=== PATIENT | male | born 1950 | race Caucasian/White ===

== ENCOUNTER 2018-02-27 11:23 | Emergency (ER) | payer MEDICARE, OTHER ==
[~2018-02-27] VITALS: Ht 170.2 cm; Wt 81.8 kg
[2018-02-27] MEDS ORDERED: LISI1TAB9 PO (11:33)
[2018-02-27 11:43] LABS: GLUCOSE,POINT OF CARE 130 MG/DL (70-110)
[2018-02-27] MEDS ORDERED: DIAZEPAM 5 MG/ML 2 ML SYRINGE IVP ONE (12:00)
[2018-02-27] MEDS ORDERED: SODIUM CHLORIDE 0.9% 1,000 ML IV ONE (12:00)
[2018-02-27 12:30] LABS: BASOPHILS % (AUTO) 0.7 % (0.0-2.0); EOSINOPHILS % (AUTO) 0.7 % (1.0-6.0); HEMATOCRIT 47.6 % (41-53); HEMOGLOBIN 16.4 g/dL (13.5-17.5); LYMPHOCYTES # (AUTO) 1.4 K/uL (1.0-4.8); LYMPHOCYTES % (AUTO) 14.8 % (22.0-44.0); MEAN CORPUSCULAR HEMOGLOBIN 31.7 pg (26.0-34.0); MEAN CORPUSCULAR HGB CONC 34.3 G/dL (31.0-37.0); MEAN CORPUSCULAR VOLUME 92 fL (80-100); MONOCYTES # (AUTO) 0.9 K/uL (0.1-1.0); MONOCYTES % (AUTO) 9.2 % (2.0-9.0); NEUTROPHILS # (AUTO) 7.2 K/uL (1.8-7.7); NEUTROPHILS % (AUTO) 74.6 % (40.0-70.0); PLATELET COUNT (AUTO) 168 K/uL (150-450); RED BLOOD CELL COUNT(AUTO) 5.17 MIL/uL (4.50-5.90); RED CELL DISTRIBUTION WIDTH 14.6 % (11.5-14.5)
[2018-02-27 12:38] LABS: ANION GAP 18 mmol/L (8-16); CALCIUM, TOTAL 9.8 mg/dL (8.8-10.5); CARBON DIOXIDE 22 mmol/L (22-29); CHLORIDE 98 mmol/L (98-107); CREATININE 1.61 mg/dL (0.60-1.30); GLOMERULAR FILTR. RATE CALC 43 mL/min (>60); GLUCOSE,RANDOM 123 mg/dL (70-110); POTASSIUM 3.6 mmol/L (3.5-5.1); SODIUM SERUM 138 mmol/L (136-145); UREA NITROGEN, BLOOD 17 mg/dL (7-18)
[2018-02-27 12:44] LABS: ALANINE AMINOTRANSFERASE 48 U/L (12-78); ALBUMIN 3.8 g/dL (3.4-5.0); ALKALINE PHOSPHATASE 58 U/L (46-116); ASPARTATE AMINOTRANSFERASE 66 U/L (15-37); BILIRUBIN,TOTAL 2.7 mg/dL (0.1-1.0); LIPASE 274 U/L (73-393)
[2018-02-27] MEDS ORDERED: LORazepam 2 MG/ML VIAL IM ONE (14:30)
[2018-02-27 16:04] VITALS: BP 141/87
== END 2018-02-27 16:06 | disposition left against medical advice (07) ==
LOC: EMS 11:24
DX: F10.239 Alcohol dependence with withdrawal, unspecified (principal); I10 Essential (primary) hypertension; Z79.899 Other long term (current) drug therapy; Y90.0 Blood alcohol level of less than 20 mg/100 ml
CPT/HCPCS: 36415; 80053; 82962; 83690; 85025; 93005; 96372; 96374; 99285; G0480; J1885; J2060; J7030

== ENCOUNTER 2018-04-09 10:47 | Emergency (ER) | payer MEDICARE, OTHER ==
[~2018-04-09] VITALS: Ht 167.6 cm; Wt 81.8 kg
[~2018-04-09 10:47] MED LIST: LISI1TAB9 PO
[2018-04-09] MEDS ORDERED: CYAN500 PO (10:51)
[2018-04-09 11:23] VITALS: BP 139/93
== END 2018-04-09 12:28 | disposition home or self-care (01) ==
LOC: EMS 10:48
DX: J06.9 Acute upper respiratory infection, unspecified (principal); I10 Essential (primary) hypertension; F17.210 Nicotine dependence, cigarettes, uncomplicated; Z79.899 Other long term (current) drug therapy
CPT/HCPCS: 99406

== ENCOUNTER 2018-04-30 13:27 | Emergency (ER) | payer MEDICARE, OTHER ==
[~2018-04-30] VITALS: Ht 160 cm; Wt 81.8 kg
[~2018-04-30 13:27] MED LIST changes: +CYAN500 PO
[2018-04-30] MEDS ORDERED: CYAN250 PO (14:59)
[2018-04-30] MEDS ORDERED: BENZONATATE 100 MG CAPSULE PO ONE (15:00)
[2018-04-30] MEDS ORDERED: AZITHROMYCIN 250 MG TABLET PO ONE (15:00)
[2018-04-30 15:25] VITALS: BP 141/87
== END 2018-04-30 15:26 | disposition home or self-care (01) ==
LOC: EMS 13:28
DX: J40 Bronchitis, not specified as acute or chronic (principal); I10 Essential (primary) hypertension; F17.210 Nicotine dependence, cigarettes, uncomplicated; Z79.899 Other long term (current) drug therapy
CPT/HCPCS: 99406

== ENCOUNTER 2018-05-07 01:21 | Emergency (ER) | payer MEDICARE, OTHER ==
[~2018-05-07] VITALS: Ht 170.2 cm; Wt 81.8 kg
[~2018-05-07 01:21] MED LIST changes: +CYAN250 PO; -CYAN500 PO
[2018-05-07 01:34] VITALS: BP 160/105
[2018-05-07] MEDS ORDERED: BACITRACIN 0.9 GM PACKET OINTMENT TP ONE (02:30)
[2018-05-07] MEDS ORDERED: PERTUSS(ACELL),DIPH,TET VAC/PF 0.5 ML VIAL IM ONE (02:30)
[2018-05-07] MEDS ORDERED: IBUPROFEN 600 MG TABLET PO ONE (02:30)
== END 2018-05-07 02:46 | disposition home or self-care (01) ==
LOC: EMS 01:22
DX: S20.212A Contusion of left front wall of thorax, initial encounter (principal); S80.212A Abrasion, left knee, initial encounter; I10 Essential (primary) hypertension; F17.210 Nicotine dependence, cigarettes, uncomplicated; W01.0XXA Fall on same level from slipping, tripping and stumbling without subsequent striking against object, initial encounter; Y93.89 Activity, other specified; Y92.89 Other specified places as the place of occurrence of the external cause; Y99.8 Other external cause status
CPT/HCPCS: 90471; 90715; 99406